=== PATIENT | male | born 1970 | race Caucasian/White ===

== ENCOUNTER 2018-08-31 13:26 | Emergency (ER) | payer MEDICAID ==
[~2018-08-31] VITALS: Ht 175.3 cm; Wt 99.8 kg
[~2018-08-31 13:26] MED LIST: ALBIPROI INH; AMOX500 PO; CLAR500 PO; HYDACE5 PO; PRED10 PO; RXAMOX500 PO
[2018-08-31 14:19] LABS: Influenza A Positive (NEGATIVE); Influenza B Negative (NEGATIVE)
== END 2018-08-31 14:36 | disposition home or self-care (01) ==
LOC: ER 13:26
PROVIDERS: Physician Assistant
DX: J10.1 Influenza due to other identified influenza virus with other respiratory manifestations (principal)
CPT/HCPCS: 71046; 87804; 99283-25